=== PATIENT | female | born 1970 | race Caucasian/White ===

== ENCOUNTER 2021-02-18 05:40 | Emergency (ER) | payer OTHER ==
[~2021-02-18 05:40] MED LIST: ANTIVERT25 MG PO; KEFLEX250 MG PO; NORCO 5-325 TA1 EACH PO; VOLTAREN **OUT50 MG PO
== END 2021-02-18 06:55 | disposition home or self-care (01) ==
LOC: FER 05:40
DX: M54.41 Lumbago with sciatica, right side (principal); I10 Essential (primary) hypertension; F17.200 Nicotine dependence, unspecified, uncomplicated
CPT/HCPCS: 73502; J1885; J7512

== ENCOUNTER 2021-04-14 16:06 | Emergency (ER) | payer OTHER | END 2021-04-14 18:36 | disposition home or self-care (01) | LOC: FER 16:06 | DX: M79.89 Other specified soft tissue disorders (principal); I10 Essential (primary) hypertension | CPT/HCPCS: 93971 ==